=== PATIENT | female | born 2000 | race Caucasian/White ===

== ENCOUNTER → 2025-01-09 09:26 | Outpatient (CLI) | payer OTHER, SELFPAY ==
--- NOTE | 2025-01-09 09:31 | DI.MRI.S_ITS ---
PROCEDURE: MR LUMBAR SPINE WO CON INDICATIONS: low back pain,left hip pain,lumb facet arthropathy TECHNIQUE: Noncontrast sagittal T1 spin echo and T2 fast echo, sagittal STIR, and T2 fast spin echo through the lumbar spine. In cases with scoliosis, additional coronal T2 fast spin echo may be performed. COMPARISON: [facility], CR, XR LUMBAR SPINE 2 OR 3 VIEWS, 10/26/2024, 12:09. [facility], CR, XR LUMBAR SPINE FLEXION EXTENSION, 12/25/2024, 12:31. FINDINGS: Image quality: Excellent. Alignment and Curvature: There is normal bony alignment. Bone Marrow: Marrow is of normal overall signal. No acute vertebral body compression fractures. Spinal Cord: Conus medullaris terminates at the L1 level. Visualized cord demonstrates normal signal and size. Paraspinous Soft Tissues: No paravertebral masses. T12-L1: Normal appearance. L1-L2: Normal appearance. L2-L3: Normal appearance. L3-L4: Mild diffuse disc bulge and mild bilateral facet arthrosis is seen. No significant canal stenosis or neural foraminal narrowing. L4-L5: Mild broad-based disc bulge and bilateral facet arthrosis. No significant central canal stenosis. Mild bilateral neural foraminal narrowing is seen. L5-S1: Mild right lateral disc bulge with mild bilateral neural foraminal narrowing. No significant central canal stenosis. IMPRESSION: 1. Mild disc bulge at L3-4 through L5-S1 levels with mild bilateral neural foraminal narrowing seen at L4-5 and L5-S1 levels. No significant central canal stenosis. 2. No marrow edema. No acute compression fracture or spondylolisthesis. 3. No gross paraspinous soft tissue abnormalities. Dictated by: Satinder Steven M.D. on 01/09/2025 at 13:16 Approved by: Satinder Stevne M.D. on 01/09/2025 at 13:21
== END ==
PROVIDERS: Referring Provider Physician Assistant Surgical; Visit Provider Physician Assistant Surgical
DX: M51.360 Other intervertebral disc degeneration, lumbar region with discogenic back pain only; M51.370 Other intervertebral disc degeneration, lumbosacral region with discogenic back pain only; M47.816 Spondylosis without myelopathy or radiculopathy, lumbar region; M48.061 Spinal stenosis, lumbar region without neurogenic claudication; M48.07 Spinal stenosis, lumbosacral region; M25.552 Pain in left hip
CPT/HCPCS: 72148

== ENCOUNTER → 2025-02-13 12:00 | Outpatient (CLI) | payer OTHER, SELFPAY ==
--- NOTE | 2025-02-13 | DI.MRI.S_ITS ---
PROCEDURE: MR HIP LT W CON INDICATIONS: LABRAL TEAR TECHNIQUE: After the administration of 10 mL of dilute intra-articular Gadolinium contrast, coronal STIR of the bony pelvis; coronal and oblique axial T1 spin echo with fat saturation, axial T2 fast spin echo with fat saturation, sagittal T1 spin echo with and without fat saturation of the involved hip. COMPARISON: None. FINDINGS: Image quality: Excellent. Bones and joints: There is no marrow edema. Prominence of superior anterior left femoral head neck junction with subtle subcortical cystic area which can be seen associated with CAM type femoral acetabular impingement. No fracture or dislocation. No avascular necrosis of the femoral head. The visualized lower lumbar spine appears normally aligned. The ligamental, neck, and labral plicae appear normal where visualized. Tendons and ligaments: Distal left gluteus medius and minimus tendinosis at their insertions on greater trochanter is seen. The nearby proximal iliotibial band also appears intact. The iliopsoas tendon appears intact, without adjacent bursal fluid collections or evidence for impingement syndrome. The origin of the hamstring tendon is intact at the ischial tuberosity. Labrum and cartilage: Faint T2 hyperintense signal and contrast extension involving superior anterior left acetabular labrum is seen concerning for subtle superior anterior labral tear. Cartilage surface of the femoral head appears of normal thickness. No paralabral cysts. Soft tissues: Visualized muscles demonstrate normal bulk and internal signal. Quadratus femoris muscle demonstrates no internal edema to suggest ischiofemoral impingement. The proximal sciatic neurovascular bundle appears normal adjacent to the hamstring tendons. No free pelvic fluid. Bladder wall thickness is normal. Genitourinary structures and bowel loops appear normal where visualized. IMPRESSION: 1. Finding is concerning for subtle superior anterior left acetabular labral tear. 2. Distal left gluteus medius and minimus tendinosis. No other muscle or tendon signal abnormalities. 3. No marrow edema. No fracture or dislocation. No evidence of avascular necrosis of femoral head. Prominence of superior anterior left femoral head neck junction with subtle subcortical T2 hyperintense signal which can be seen associated with CAM type femoral acetabular impingement. Dictated by: Satinder Steven M.D. on 02/13/2025 at 14:51 Approved by: Satinder Steven M.D. on 02/13/2025 at 14:54
--- NOTE | 2025-02-13 12:01 | DI.RAD.S_ITS ---
PROCEDURE: FL ARTHROGRAM HIP LT INDICATIONS: tear of lft acetabular labrum TECHNIQUE: The indications, alternatives, benefits, risks, and complications of the procedure were explained to the patient. Written informed consent was obtained and placed in the chart. The hip was examined fluoroscopically with the legs fixed in slight internal rotation, and a site for needle placement chosen for entry into the hip joint from an anterior approach. Care was taken to locate the common femoral artery and vein beforehand. The skin was prepped and draped in a sterile fashion, and 1% Lidocaine infiltrated from skin down to joint capsule. A spinal needle was inserted into the joint, and a small amount of iodinated contrast media injected to confirm intra-articular placement of the needle tip. This was followed by approximately 12 mL dilute solution of a gadolinium containing MR contrast agent. The needle was removed and a dressing was applied. The patient was given postprocedural instructions and sent to the MR suite for imaging. COMPARISON: [facility], , MR HIP LT W CON, 02/13/2025, 13:15. FINDINGS: A single fluoroscopic spot image demonstrates intra-articular location of injected iodinated contrast. IMPRESSION: Successful fluoroscopically guided administration of dilute Gadolinium solution into the left hip joint for MR arthrogram. Dictated by: Carlitos Washington M.D. on 02/13/2025 at 13:42 Approved by: Carlitos Washington M.D. on 02/13/2025 at 13:43
== END ==
LOC: RAD 12:00
PROVIDERS: Referring Provider Orthopaedic Surgery; Visit Provider Orthopaedic Surgery
DX: S73.192A Other sprain of left hip, initial encounter (principal); X58.XXXA Exposure to other specified factors, initial encounter
CPT/HCPCS: 27093; 73525; 73722; A9579; Q9967